=== PATIENT | female | born 1950 | race Two or more races ===

== ENCOUNTER 2020-03-07 07:00 | Inpatient (IN) | payer MEDICARE, OTHER ==
[~2020-03-07] VITALS: Ht 157.5 cm; Wt 60.4 kg
[2020-03-07 08:00] VITALS: BP 128/60
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
[2020-03-07] MEDS ORDERED: PANT40TA4 PO (09:18)
[2020-03-07] MEDS ORDERED: ENAL20TA PO (09:18)
[2020-03-07] MEDS ORDERED: CALC500T52 PO (09:18)
[2020-03-07] MEDS ORDERED: QUET400T PO (09:18)
[2020-03-07] MEDS ORDERED: MONT10TA22 PO (09:18)
[2020-03-07] MEDS ORDERED: METF-440 PO (09:18)
[2020-03-07] MEDS ORDERED: ARIP400S3 PO (09:18)
[2020-03-07] MEDS ORDERED: CHOL100040 PO (09:21)
[2020-03-07 09:25] VITALS: BP 128/60
[2020-03-07] MEDS ORDERED: MAG HYDROX/AL HYDROX/SIMETH 30 ML UDC PO PRN (09:30)
[2020-03-07] MEDS ORDERED: BLOOD SUGAR DIAGNOSTIC 1 EACH STRIP IN ONE (09:30)
[2020-03-07] MEDS ORDERED: ZOLPIDEM TARTRATE 10 MG TABLET PO PRN (09:30)
[2020-03-07] MEDS ORDERED: ACETAMINOPHEN 325 MG TABLET PO PRN (09:30)
[2020-03-07] MEDS ORDERED: MAGNESIUM HYDROXIDE 30 ML UDC PO PRN (09:30)
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
--- NOTE | 2020-03-07 11:54 | NUR ---
Initial Discharge Plan: Pt currently resides at [facility] located at [address] [place] [address] manager, Arin ([phone]), pt cannot return. SW will work with the pt and the MD regarding appropriate discharge planning. SW will form a safe and proper discharge.
--- NOTE | 2020-03-07 12:24 | NUR ---
Mental Health Center Contact: SW called the [facility] ([phone]) and spoke to Kimi who stated that the pt received an injection of Abilify 400mg on 03/05/20 and that she was diagnosed with Mood Disorder and Schizoaffective disorder.
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
[2020-03-07 16:00] VITALS: BP 139/73
[2020-03-07] MEDS: CHOLECALCIFEROL 1,000 UNIT TABLET (VIT D3) PO SCH (16:03)
[2020-03-07] MEDS: CALCIUM CARBONATE (1250) 500 MG TABLET PO SCH (16:03)
[2020-03-07] MEDS: ENALAPRIL MALEATE (10 MG) 10 MG TABLET PO SCH (16:05)
--- NOTE | 2020-03-07 19:30 | NUR ---
GPS RN NOTE, RECEIVED PATIENT AWAKE AND IN BED, PATIENT HAS NO COMPLAINTS OF PAIN. PATIENT IS DISPLAYING NO S/S OF APPARENT DISTRESS AT THIS TIME. PATIENT BREATHING IS UNLABORED WITH EQUAL RISE AND FALL OF THE CHEST. PATIENT IS ALERT AND ORIENTED X 3 ON ROOM AIR WITH A SPO2 97%. PATIENT IS COMPLIANT WITH MEDICATION, GUARDED, EASILY ANGERED, ANXIOUS AT TIMES AND COOPERATIVE. PATIENT DENIES SUICIDE IDEATIONS AND HOMICIDAL IDEATIONS AT THIS TIME. PATIENT ASSISTED WITH TURNING AND REPOSITIONING Q2HR AND PRN FOR COMFORT AND CIRCULATION. PATIENT HAS NO NEEDS AT THIS TIME. PATIENT EDUCATED ON THE USE OF THE CALL DUMONT. PATIENT BED SIDE RAILS UP X 2 FOR SAFETY, BED IS LOCKED, AND LOW. WILL CONTINUE TO MONITOR Q15MIN WITH THE HELP OF STAFF TO MAINTAIN SAFETY.
[2020-03-07 20:18] VITALS: BP 134/74
[2020-03-07] MEDS: QUETIAPINE FUMARATE 100 MG TABLET PO SCH (21:40)
[2020-03-07] MEDS: DIVALPROEX SODIUM 125 MG CAP.SPRINK PO SCH (21:40)
[2020-03-07] MEDS ORDERED: MONTELUKAST SODIUM (10MG) 10 MG TABLET PO SCH (22:00)
[2020-03-08 06:15] LABS: BASOPHILS % (AUTO) 0.8 % (0.0-2.0); EOSINOPHILS % (AUTO) 6.1 % (0.0-6.0); HEMATOCRIT 29 % (33-45); HEMOGLOBIN 9.3 g/dL (11.5-14.8); LYMPHOCYTES # (AUTO) 0.9 /CMM (0.8-4.8); LYMPHOCYTES % (AUTO) 24.8 % (20.0-44.0); MEAN CORPUSCULAR HGB CONC 32 g/dl (31.0-36.0); MEAN CORPUSCULAR VOLUME 73 fL (82-100); MONOCYTES # (AUTO) 0.3 /CMM (0.1-1.30); NEUTROPHILS # (AUTO) 2.3 /CMM (1.8-8.9); NEUTROPHILS % (AUTO) 59.3 % (43.0-81.0); PLATELET COUNT (AUTO) 368 /CMM (150-450); RED BLOOD CELL COUNT(AUTO) 3.98 MIL/uL (4.0-5.2); WHITE BLOOD COUNT (AUTO) 3.8 K/uL (4.3-11.0)
[2020-03-08 06:42] LABS: CALCIUM, SERUM 8.6 mg/dL (8.5-10.1); CREATININE 0.7 mg/dL (0.6-1.3); MAGNESIUM 1.5 mg/dL (1.8-2.4); PHOSPHORUS 2.8 mg/dL (2.5-4.9); POTASSIUM 3.8 mmol/L (3.5-5.1)
[2020-03-08] MEDS: PANTOPRAZOLE 40 MG TABLET.DR PO SCH (07:30)
[2020-03-08] MEDS: ENALAPRIL MALEATE (10 MG) 10 MG TABLET PO SCH (08:53)
[2020-03-08] MEDS: DIVALPROEX SODIUM 125 MG CAP.SPRINK PO SCH ×2 (08:53→21:18)
[2020-03-08] MEDS: CHOLECALCIFEROL 1,000 UNIT TABLET (VIT D3) PO SCH (08:53)
[2020-03-08] MEDS: MONTELUKAST SODIUM (10MG) 10 MG TABLET PO SCH (08:54)
[2020-03-08] MEDS: CALCIUM CARBONATE (1250) 500 MG TABLET PO SCH ×2 (08:54→16:30)
[2020-03-08] MEDS: METFORMIN 500 MG TABLET PO SCH (08:54)
--- NOTE | 2020-03-08 09:00 | NUR ---
RN NOTE- PT IN BED IN ROOM, ALERT, CALM DIRECTABLE, PO INTAKE GOOD, MED COMPLIANT, NO BEHAVIORAL ISSUES
[2020-03-08] MEDS ORDERED: MAGNESIUM OXIDE 400 MG TABLET PO ONE (10:30)
[2020-03-08 10:39] LABS: EOSINOPHILS % (MANUAL) 6 % (0-4); LYMPHOCYTES % (MANUAL) 25 % (16-48); MONOCYTES % (MANUAL) 7 % (0-11.0); NEUTROPHILS % (MANUAL) 62 (42-76)
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
[2020-03-08 16:07] VITALS: BP 163/87
--- NOTE | 2020-03-08 19:30 | NUR ---
GPS RN NOTE, RECEIVED PATIENT AWAKE AND IN BED, PATIENT HAS NO COMPLAINTS OF PAIN. PATIENT IS DISPLAYING NO S/S OF APPARENT DISTRESS AT THIS TIME. PATIENT BREATHING IS UNLABORED WITH EQUAL RISE AND FALL OF THE CHEST. PATIENT IS ALERT AND ORIENTED X 3 ON ROOM AIR WITH A SPO2 98%. PATIENT IS COMPLIANT WITH MEDICATION, GUARDED, ISOLATIVE, ANXIOUS AT TIMES, AND COOPERATIVE. PATIENT DENIES SUICIDE IDEATIONS AND HOMICIDAL IDEATIONS AT THIS TIME. PATIENT ASSISTED WITH TURNING AND REPOSITIONING Q2HR AND PRN FOR COMFORT AND CIRCULATION. PATIENT HAS NO NEEDS AT THIS TIME. PATIENT EDUCATED ON THE USE OF THE CALL DUMONT. PATIENT BED SIDE RAILS UP X 2 FOR SAFETY, BED IS LOCKED, AND LOW. WILL CONTINUE TO MONITOR Q15MIN WITH THE HELP OF STAFF TO MAINTAIN SAFETY.
[2020-03-08 20:00] VITALS: BP 123/78
[2020-03-08] MEDS: QUETIAPINE FUMARATE 100 MG TABLET PO SCH (21:18)
[2020-03-09 08:00] VITALS: BP 119/76
[2020-03-09] MEDS: CHOLECALCIFEROL 1,000 UNIT TABLET (VIT D3) PO SCH (08:38)
[2020-03-09] MEDS: CALCIUM CARBONATE (1250) 500 MG TABLET PO SCH ×2 (08:38→16:11)
[2020-03-09] MEDS: DIVALPROEX SODIUM 125 MG CAP.SPRINK PO SCH ×2 (08:38→21:32)
[2020-03-09] MEDS: ENALAPRIL MALEATE (10 MG) 10 MG TABLET PO SCH (08:38)
[2020-03-09] MEDS: METFORMIN 500 MG TABLET PO SCH (08:38)
[2020-03-09] MEDS: MONTELUKAST SODIUM (10MG) 10 MG TABLET PO SCH (08:38)
[2020-03-09] MEDS: PANTOPRAZOLE 40 MG TABLET.DR PO SCH (08:39)
[2020-03-09 16:00] VITALS: BP 115/66
[2020-03-09 20:00] VITALS: BP 123/78
[2020-03-09] MEDS: QUETIAPINE FUMARATE 100 MG TABLET PO SCH (21:32)
[2020-03-10 08:00] VITALS: BP 125/76
[2020-03-10] MEDS: METFORMIN 500 MG TABLET PO SCH (08:08)
[2020-03-10] MEDS: PANTOPRAZOLE 40 MG TABLET.DR PO SCH (08:09)
[2020-03-10] MEDS: CHOLECALCIFEROL 1,000 UNIT TABLET (VIT D3) PO SCH (08:09)
[2020-03-10] MEDS: DIVALPROEX SODIUM 125 MG CAP.SPRINK PO SCH ×2 (08:09→21:23)
[2020-03-10] MEDS: CALCIUM CARBONATE (1250) 500 MG TABLET PO SCH ×2 (08:09→16:16)
[2020-03-10] MEDS: MONTELUKAST SODIUM (10MG) 10 MG TABLET PO SCH (08:09)
[2020-03-10] MEDS: ENALAPRIL MALEATE (10 MG) 10 MG TABLET PO SCH (08:10)
[2020-03-10 16:00] VITALS: BP 115/68
[2020-03-10 20:38] VITALS: BP 128/63
[2020-03-10] MEDS: QUETIAPINE FUMARATE 100 MG TABLET PO SCH (21:23)
[2020-03-11] MEDS: PANTOPRAZOLE 40 MG TABLET.DR PO SCH (07:30)
[2020-03-11 08:00] VITALS: BP 131/81
[2020-03-11] MEDS: MONTELUKAST SODIUM (10MG) 10 MG TABLET PO SCH (08:49)
[2020-03-11] MEDS: ENALAPRIL MALEATE (10 MG) 10 MG TABLET PO SCH (08:50)
[2020-03-11] MEDS: CHOLECALCIFEROL 1,000 UNIT TABLET (VIT D3) PO SCH (08:50)
[2020-03-11] MEDS: CALCIUM CARBONATE (1250) 500 MG TABLET PO SCH ×2 (08:50→17:00)
[2020-03-11] MEDS: DIVALPROEX SODIUM 125 MG CAP.SPRINK PO SCH ×2 (08:50→21:32)
[2020-03-11] MEDS: METFORMIN 500 MG TABLET PO SCH (08:50)
--- NOTE | 2020-03-11 12:36 | NUR ---
Braiding Machine Tender: X Ray Inspector at [facility], Arin ([phone]), called the SW and stated the pt called her and informed her that she was leaving. SW stated that was not accurate information. SW stated that she would call her at the time of discharge and let her know where the pt is going so that her belongings can be transported there.
--- NOTE | 2020-03-11 13:18 | NUR ---
SNF Referral: SHABBIR faxed a referral to [facility] with attn to AVINASH and Kevin to the fax number: [phone].
--- NOTE | 2020-03-11 15:37 | NUR ---
SNF Contact: AVINASH ([phone]), park activities coordinator from [facility], contacted the SW and stated that the pt was accepted to their facility.
[2020-03-11 16:00] VITALS: BP 130/68
[2020-03-11 19:55] LABS: APPEARANCE,URINE SL CLOUDY (CLEAR); BILIRUBIN,URINE NEGATIVE (NEGATIVE); BLOOD, URINE TRACE Ery/uL (NEGATIVE); COLOR,URINE YELLOW (YELLOW); KETONES,URINE 15 (NEGATIVE); LEUKOCYTE ESTERASE ,URINE LARGE (NEGATIVE); NITRITE, URINE NEGATIVE (NEGATIVE); PROTEIN,URINE NEGATIVE (NEGATIVE); UGLUCOSE NEGATIVE (NEGATIVE); UROBILINOGEN,URINE 0.2 EU/dL (0.2)
[2020-03-11 20:08] VITALS: BP 108/63
[2020-03-11 20:09] LABS: BACTERIA,URINE 2+ /HPF (None Seen); SQUAMOUS EPITHELIAL CELL,UR 0-2 /HPF (None Seen); WBC,URINE 81-100 /HPF (0-3)
[2020-03-11] MEDS: QUETIAPINE FUMARATE 100 MG TABLET PO SCH (21:31)
[2020-03-12 08:00] VITALS: BP 115/52
[2020-03-12 08:02] VITALS: BP 115/52
[2020-03-12] MEDS: CHOLECALCIFEROL 1,000 UNIT TABLET (VIT D3) PO SCH (08:13)
[2020-03-12] MEDS: METFORMIN 500 MG TABLET PO SCH (08:13)
[2020-03-12] MEDS: MONTELUKAST SODIUM (10MG) 10 MG TABLET PO SCH (08:13)
[2020-03-12] MEDS: DIVALPROEX SODIUM 125 MG CAP.SPRINK PO SCH ×3 (08:13→16:09)
[2020-03-12] MEDS: ENALAPRIL MALEATE (10 MG) 10 MG TABLET PO SCH (08:13)
[2020-03-12] MEDS: PANTOPRAZOLE 40 MG TABLET.DR PO SCH (08:13)
[2020-03-12] MEDS: CALCIUM CARBONATE (1250) 500 MG TABLET PO SCH ×2 (08:13→16:09)
--- NOTE | 2020-03-12 09:18 | NUR ---
GPS RN OPENING NOTE: RECEIVED PATIENT AOX3-4. PATIENT SI MED COMPLIANT. DENIES VAH AND SI//HI. PATIENT IS CALM, COOPERATIVE, FRIENDLY, POLITE. BREATHING IS EVEN AND UNLABORED WITH EQUAL RISE AND FALL OF CHEST. SAFETY PRECAUTIONS IN PLACE. BED IN LOCKED AND LOW POSITION WITH 2 SIDE RAILS UP FOR SAFETY. WILL CONTINUE TO MONITOR Q15 FOR MOOD, SAFETY AND BEHAVIOR
[2020-03-12] MEDS ORDERED: MAGNESIUM OXIDE 400 MG TABLET PO ONE (09:30)
[2020-03-12] MEDS: CEPHALEXIN MONOHYDRATE 500 MG CAPSULE PO SCH ×2 (11:00→20:33)
[2020-03-12] MEDS ORDERED: CEPHALEXIN MONOHYDRATE 500 MG CAPSULE PO SCH (12:00)
--- NOTE | 2020-03-12 14:15 | NUR ---
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 SW met with the pt at bedside and discussed the pts discharge planning. SW stated that she was accepted to [facility] and that she would be discharged on Wednesday. Pt began to thank the SW and stated that this facility location is close to her [facility] which is important for her to be near. Pt stated that her possessions are also extremely important to her and that she needs the SWs assistance to have her belongings moved. SW stated that she would call her manager gift and coordinate.
[2020-03-12 16:00] VITALS: BP 118/70
[2020-03-12 20:23] VITALS: BP 106/56
[2020-03-12] MEDS: QUETIAPINE FUMARATE 100 MG TABLET PO SCH (21:10)
--- NOTE | 2020-03-13 06:48 | NUR ---
RN NOTES, NO SIGNIFICANTS CHANGE IN CONDITION, PATIENT COMPLAIN WITH CARE, DISRUPTIVE BEHAVIOR EXHIBITED AT TIMES, ADEQUATE HORS OF SLEEP, WILL ENDORSED CONTINUITY OF CARE TO ONCOMING NURSE
[2020-03-13 08:00] VITALS: BP 134/73
[2020-03-13] MEDS: DIVALPROEX SODIUM 125 MG CAP.SPRINK PO SCH ×3 (08:22→16:30)
[2020-03-13] MEDS: PANTOPRAZOLE 40 MG TABLET.DR PO SCH (08:22)
[2020-03-13] MEDS: CALCIUM CARBONATE (1250) 500 MG TABLET PO SCH ×2 (08:23→16:29)
[2020-03-13] MEDS: ENALAPRIL MALEATE (10 MG) 10 MG TABLET PO SCH (08:23)
[2020-03-13] MEDS: MONTELUKAST SODIUM (10MG) 10 MG TABLET PO SCH (08:23)
[2020-03-13] MEDS: CHOLECALCIFEROL 1,000 UNIT TABLET (VIT D3) PO SCH (08:23)
[2020-03-13] MEDS: CEPHALEXIN MONOHYDRATE 500 MG CAPSULE PO SCH ×2 (08:23→21:40)
[2020-03-13] MEDS: METFORMIN 500 MG TABLET PO SCH (08:23)
--- NOTE | 2020-03-13 16:22 | NUR ---
Individual Counseling: Goal: Patient will meet with SW today at 1:00 pm for individual counseling. Intervention: SW facilitated counseling session with patient regarding Positive Coping Mechanisms in the activities room. SW explored positive coping mechanisms the pt. has used in the past. SW educated patient on additional positive coping mechanisms including: self-soothing, Daily Affirmations, and emotional awareness techniques. Response: Patient was agreeable to participating in individual counseling session. The patient made appropriate eye contact, was pleasant and engaging throughout counseling session. The patient stated that in the past she has enjoyed memorizing bible verses, exercising: yoga, body weight exercises and praying to de-stress and cope with difficult times. Pt. expressed she appreciated SW meeting with her. Plan: Patient will be invited to future counseling sessions.
[2020-03-13] MEDS: LORAZEPAM 0.5 MG TABLET PO PRN (17:32)
--- NOTE | 2020-03-13 17:39 | NUR ---
RN-CO: ATIVAN GIVEN FOR AGITATION.
[2020-03-13 20:16] VITALS: BP 112/60
[2020-03-13] MEDS: QUETIAPINE FUMARATE 100 MG TABLET PO SCH (21:40)
--- NOTE | 2020-03-14 07:39 | NUR ---
GPS RN NOTE: OPENING RECEIVED PATIENT AOX3, CALM, COOPERATIVE, MED COMPLIANT, FRIENDLY, POLITE AND REDIRECTABLE. PATIENT IS AMBULATORY WITH STEADY GAIT. PATIENT DENIES SI/HI AND VAH. BREATHING IS EVEN AND UNLABORED WITH EQUAL RISE AND OF FALL OF CHEST. PATIENT DENIES PAIN AND IS EXHIBITING NO SIGNS OF DISTRESS. SAFETY PRECAUTIONS IN PLACE. BED IN LOCKED AND LOW POSITION WITH 2 SIDE RAILS UP FOR SAFETY. NEEDS MET. WILL CONTINUE TO MONITOR Q15 FOR MOOD, SAFETY AND BEHAVIOR.
[2020-03-14 08:00] VITALS: BP 119/70
[2020-03-14] MEDS: CEPHALEXIN MONOHYDRATE 500 MG CAPSULE PO SCH ×2 (08:17→21:21)
[2020-03-14] MEDS: ENALAPRIL MALEATE (10 MG) 10 MG TABLET PO SCH (08:17)
[2020-03-14] MEDS: CHOLECALCIFEROL 1,000 UNIT TABLET (VIT D3) PO SCH (08:17)
[2020-03-14] MEDS: PANTOPRAZOLE 40 MG TABLET.DR PO SCH (08:17)
[2020-03-14] MEDS: MONTELUKAST SODIUM (10MG) 10 MG TABLET PO SCH (08:17)
[2020-03-14] MEDS: DIVALPROEX SODIUM 125 MG CAP.SPRINK PO SCH ×3 (08:17→16:11)
[2020-03-14] MEDS: METFORMIN 500 MG TABLET PO SCH (08:17)
[2020-03-14] MEDS: CALCIUM CARBONATE (1250) 500 MG TABLET PO SCH ×2 (08:17→16:11)
--- NOTE | 2020-03-14 09:29 | NUR ---
ENVIRONMENTAL FIELD OFFICE MANAGER: SHABBIR called the retail tire sales manager at [facility], Arin ([phone]), to inform her pt will be discharged on Wednesday03/15/[address] [facility]. She requested a call back will information as she was currently busy.
[2020-03-14] MEDS: LORAZEPAM 0.5 MG TABLET PO PRN (13:10)
--- NOTE | 2020-03-14 14:33 | NUR ---
COMMUNITY FACILITATOR: SHABBIR called the hair or beauty salon manager at [facility], Arin ([phone]), to inform her pt will be discharged on Wednesday03/15/20 to [facility]. SW provided her with facility contact information.
--- NOTE | 2020-03-14 14:35 | NUR ---
INDIVIDUAL MEETING: SW met with pt to discuss her discharge plan. SW informed pt that she will be discharged tomorrow 03/15/20 to [facility]. Pt is concerned with the facility being close to her [facility] in [facility]. SW stated that [facility] is close to [facility]. SW also informed her that Arin will be taking her belongings to the facility. Pt agreed with discharge plan.
--- NOTE | 2020-03-14 15:32 | NUR ---
SNF Referral: SHABBIR faxed a COVID clearance to [facility] with attn to CJ to the fax number: [phone].
[2020-03-14 16:00] VITALS: BP 127/75
[2020-03-14 21:11] VITALS: BP 116/66
[2020-03-14] MEDS: QUETIAPINE FUMARATE 100 MG TABLET PO SCH (21:21)
[2020-03-15 07:49] VITALS: BP 120/77
[2020-03-15 08:00] VITALS: BP 120/77
[2020-03-15] MEDS: CHOLECALCIFEROL 1,000 UNIT TABLET (VIT D3) PO SCH (08:02)
[2020-03-15] MEDS: MONTELUKAST SODIUM (10MG) 10 MG TABLET PO SCH (08:02)
[2020-03-15] MEDS: METFORMIN 500 MG TABLET PO SCH (08:02)
[2020-03-15] MEDS: PANTOPRAZOLE 40 MG TABLET.DR PO SCH (08:02)
[2020-03-15] MEDS: ENALAPRIL MALEATE (10 MG) 10 MG TABLET PO SCH (08:02)
[2020-03-15] MEDS: CALCIUM CARBONATE (1250) 500 MG TABLET PO SCH (08:02)
[2020-03-15] MEDS: CEPHALEXIN MONOHYDRATE 500 MG CAPSULE PO SCH (08:02)
[2020-03-15] MEDS: DIVALPROEX SODIUM 125 MG CAP.SPRINK PO SCH ×2 (08:02→12:30)
--- NOTE | 2020-03-15 14:05 | NUR ---
Discharge Note: Pt was discharged to [facility] located at [address] [place] [id number]; . Pt was transported via [facility] (Trip #[id number]) at 3PM. Upon discharge, the pt appeared to be in a euthymic mood and presented with a calm affect yet anxious affect. Pt was alert and oriented x4 (time, place, self and situation). Pt denied both suicidal and homicidal ideation as well as auditory and visual hallucinations. Pt will be under the care of her psychiatrist, Dr. Rodríguez, located at [address] [facility] [address] [place] [address]; and her finishing frame runner, Dr. Epstein, located at [address] [place] [id number]; . Pt signed the Choice of Vendor.
[2020-03-15 16:00] VITALS: BP 107/51
--- NOTE | 2020-03-15 16:30 | NUR ---
GPS RN NOTE: DISCHARGE PATIENT IS A 69 YEAR OLD FEMALE DISCHARGED TO [facility] ([facility] PATIENT IS IN STABLE CONDITION. VSS. NO ACUTE DISTRESS NOTED. NO COMPLAINTS. COMPLIANT WITH MEDICATION MANAGEMENT. COOPERATIVE WITH PLAN OF CARE. PSYCHIATRIC TREATMENT PLANS MET. MEDICAL TREATMENT PLANS DEFERRED FOR CONTINUAL MONITORING. DENIES SI/HI VAH AT THE TIME OF DISCHARGE. SKIN CHECK DONE AND SKIN IS INTACT. EDUCATED PATIENT ABOUT AFTERCARE WITH COPY PROVIDED. RETURNED PERSONAL BELONGINGS TO PATIENT. MEDICATIONS RECONCILED WITH DR YEE ALONG WITH PSYCHIATRIC DISCHARGE ORDERS. DISCHARGE PAPERWORK SIGNED. FOR FOLLOW UP WITH PSYCHIATRIST AND PARTS EXPEDITER WITHIN 1 WEEK. PATIENT LEFT THE [facility] GPS VIA AMBULANCE AT 1630. TRIP NUMBER [id number].
[2020-04-05] MEDS ORDERED: ARIPIPRAZOLE IM SCH (09:00)
== END 2020-03-15 16:30 | DRG 885 ==
LOC: GPS 07:00
PROVIDERS: ADMIT Psychiatry & Neurology Psychiatry; ATTEND Internal Medicine
DX: F25.0 Schizoaffective disorder, bipolar type (principal); F23 Brief psychotic disorder; N39.0 Urinary tract infection, site not specified; F41.9 Anxiety disorder, unspecified; M62.81 Muscle weakness (generalized); E11.9 Type 2 diabetes mellitus without complications; I10 Essential (primary) hypertension; M81.0 Age-related osteoporosis without current pathological fracture; K21.9 Gastro-esophageal reflux disease without esophagitis; F32.9 Major depressive disorder, single episode, unspecified
CPT/HCPCS: 36415; 80048-TC; 80164-TC; 81000-TC; 82962-TC; 83735-TC; 84100-TC; 85025-TC; 87081-TC; 87086-TC